=== PATIENT | male | born 1955 | race Caucasian/White ===

== ENCOUNTER → 2018-03-22 | Outpatient (CLI) | payer BC ==
[2018-03-22 08:28] LABS: Basophils # (A) 0.1 k/uL (0-0.2); Basophils % (A) 2 %; Eosinophils # (A) 0.2 k/uL (0-0.7); Eosinophils % (A) 4 %; HCT 49.9 % (39.0-53.0); HGB 16.5 gm/dL (13.0-17.5); Lymphocytes # (A) 1.8 k/uL (1.0-4.8); Lymphocytes % (A) 42 %; MCH 30.3 pg (25.0-35.0); MCHC 33.1 g/dL (31.0-37.0); MCV 91.5 fL (80.0-100.0); Mean Platelet Volume 6.4; Monocytes # (A) 0.2 k/uL (0-1.0); Monocytes % (A) 5 %; Neutrophils # (A) 1.8 k/uL (1.3-7.7); Neutrophils % (A) 43 %; Platelet Count 302 k/uL (150-450); RBC 5.45 m/uL (4.30-5.90); RDW 12.6 % (11.5-15.5); WBC 4.2 k/uL (3.8-10.6)
== END | disposition home or self-care (01) ==
LOC: LABWHC1 08:07
PROVIDERS: ATTEND Family Medicine
DX: E78.5 Hyperlipidemia, unspecified (principal); Z12.5 Encounter for screening for malignant neoplasm of prostate
CPT/HCPCS: 36415; 84153; 85025

== ENCOUNTER → 2019-03-21 | Outpatient (CLI) | payer MEDICARE, BC | END | disposition home or self-care (01) | LOC: LABWHC1 08:10 | PROVIDERS: ATTEND Urology | DX: R97.20 Elevated prostate specific antigen [PSA] (principal) | CPT/HCPCS: 36415; 84153 ==

== ENCOUNTER → 2020-04-10 | Outpatient (CLI) | payer MEDICARE | END | disposition home or self-care (01) | LOC: LABWHC1 10:38 | PROVIDERS: ATTEND Urology | DX: R97.20 Elevated prostate specific antigen [PSA] (principal) | CPT/HCPCS: 36415; 84153 ==

== ENCOUNTER → 2020-11-10 | Outpatient (CLI) | payer MEDICARE | END | disposition home or self-care (01) | LOC: LABWHC1 09:08 | PROVIDERS: ATTEND Urology | DX: R97.20 Elevated prostate specific antigen [PSA] (principal) | CPT/HCPCS: 36415; 84153 ==

== ENCOUNTER → 2021-12-22 | Outpatient (CLI) | payer MEDICARE | END | disposition home or self-care (01) | LOC: LABWHC1 08:21 | PROVIDERS: ATTEND Urology | DX: R97.20 Elevated prostate specific antigen [PSA] (principal) | CPT/HCPCS: 36415; 84153 ==

== ENCOUNTER → 2022-07-06 | Outpatient (CLI) | payer MEDICARE | END | disposition home or self-care (01) | LOC: LABWHC1 09:44 | PROVIDERS: ATTEND Urology | DX: R97.20 Elevated prostate specific antigen [PSA] (principal) | CPT/HCPCS: 36415; 84153 ==

== ENCOUNTER → 2023-02-10 | Outpatient (CLI) | payer MEDICARE ==
--- NOTE | 2023-02-10 13:01 | CA ---
Transthoracic Echo Report Name: Vince Park Age: 67 Gender: M : 1955 Exam Date: 02/10/2023 11:23 Exam Location: [place] Echo Ht (in): 68 Wt (lb): 195 Ordering Physician: Festus Jones MD Attending/Referring Phys: [id number], Robert Tower Loader Operator Mónica Luo RDCS Procedure CPT: Indications: R94.31 ABNORMAL EKG Cardiac Hx: Technical Quality: Good Contrast 1: Total Dose (mL): Contrast 2: Total Dose (mL): MEASUREMENTS (Male / Female) Normal Values 2D ECHO LV Diastolic Diameter PLAX 4.5 cm 4.2 - 5.9 / 3.9 - 5.3 cm LV Systolic Diameter PLAX 2.8 cm IVS Diastolic Thickness 1.1 cm 0.6 - 1.0 / 0.6 - 0.9 cm LVPW Diastolic Thickness 1.0 cm 0.6 - 1.0 / 0.6 - 0.9 cm LV Relative Wall Thickness 0.5 RV Internal Dim ED PLAX 3.5 cm LA Systolic Diameter LX 4.0 cm 3.0 - 4.0 / 2.7 - 3.8 cm LV Diastolic Volume MOD BP 76.8 cm??? 67 - 155 / 56 - 104 cm??? LV Systolic Volume MOD BP 41.3 cm??? 22 - 58 / 19 - 49 cm??? LV Ejection Fraction MOD BP 46.2 % >= 55 % LV Cardiac Index MOD BP 1361.9 cm???/min???m??? LV Diastolic Volume MOD 4C 95.1 cm??? LV Systolic Volume MOD 4C 42.3 cm??? LV Ejection Fraction MOD 4C 55.5 % LV Cardiac Index MOD 4C 2026.3 cm???/min???m??? LV Diastolic Length 4C 8.0 cm LV Systolic Length 4C 6.6 cm LV Diastolic Volume MOD 2C 59.8 cm??? LV Systolic Volume MOD 2C 26.2 cm??? LV Ejection Fraction MOD 2C 56.2 % LV Cardiac Index MOD 2C 1289.2 cm???/min???m??? LV Diastolic Length 2C 8.4 cm LV Systolic Length 2C 5.1 cm LA Volume 48.0 cm??? 18 - 58 / 22 - 52 cm??? M-MODE Aortic Root Diameter MM 3.7 cm MV E Point Septal Separation 0.4 cm AV Cusp Separation MM 2.5 cm DOPPLER AV Peak Velocity 122.2 cm/s AV Peak Gradient 6.0 mmHg MV Area PHT 2.2 cm??? Mitral E Point Velocity 64.0 cm/s Mitral A Point Velocity 83.2 cm/s Mitral E to A Ratio 0.8 MV Deceleration Time 341.3 ms MV E' Velocity 7.4 cm/s Mitral E to MV E' Ratio 8.7 TR Peak Velocity 231.5 cm/s TR Peak Gradient 21.4 mmHg Right Ventricular Systolic Press 25.6 mmHg FINDINGS Left Ventricle Left ventricular ejection fraction is estimated at 55-60 %. Left ventricular cavity size normal. Left ventricular wall thickness normal. Normal left ventricular wall motion. Sygmoid septum Right Ventricle Mild right ventricular dilatation. Right ventricular systolic pressure within normal limits. Right Atrium Normal right atrial size. Left Atrium Normal left atrial size. Mitral Valve Structurally normal mitral valve. No evidence for mitral valve prolapse. No mitral stenosis. Mild mitral regurgitation. Aortic Valve Trileaflet aortic valve. Trace aortic regurgitation. Tricuspid Valve Structurally normal tricuspid valve. Mild tricuspid regurgitation. Pulmonic Valve Structurally normal pulmonic valve. Trace pulmonic regurgitation. Pericardium Normal pericardium. No pericardial effusion. Aorta Normal size aortic root and proximal ascending aorta. CONCLUSIONS 1. Normal left ventricle size and systolic function 2. Mild mitral and tricuspid regurgitation Previewed by: Dr. Cuate Colorado MD (Electronically Signed) Final Date: 10 February 2023 13:00
--- NOTE | 2023-02-10 13:03 | CA ---
Exercise Stress Test Report Name: Vince Park Exam Date: 02/10/2023 11:01 Exam Location: [place] [facility] Ht (in): Wt (lb): BSA: Ordering Phys: Festus Jones MD Referring Phys: Robert, Technologist: Sebastián Molina Age: 67 Gender: M : 1955 Procedure CPT: Indications: R94.31 ABNORMAL EKG ICD-10 Codes: Patient History: Hypertension Medications: Meds past 24 hrs: Pretest Chest Pain: STRESS TEST Matthew Protocol Exercise Duration (min:sec): 09:[address] Depressions (mm): 0 Angina Score: 0 Simon Score: 9 Resting HR (bpm): 70 Peak HR (bpm): 154 Resting BP (mmHg): 146 / 93 Peak BP (mmHg): 222 / 90 MPHR: 151 Target HR: 128 % MPHR: 102 METS: 10.3 Total Dose: Peak Dose: Atropine: Double Product: 64443 BP Response: Stress Termination: Reached target heart rate Stress Symptoms: No chest pain or symptoms Stress Summary: The patient's target heart rate was achieved , The hemodynamic response to exercise was normal ECG ANALYSIS Resting ECG: Sinus rhythm. Normal conduction. No arrhythmias. Normal repolarization. Stress ECG: No ECG evidence of ischemia with exercise. CONCLUSIONS Patient falls into low-risk group (DTS >= +5). This associates the patient with an annual CV mortality <= 0.5%. 1. Good exercise tolerance 2. Normal electrocardiographic response to exercise with no evidence of stress-induced ischemia Dr. Cuate Colorado MD (Electronically Signed) Final Date: 10 February 2023 13:02
== END | disposition home or self-care (01) ==
LOC: RADNMMAIN 10:24
PROVIDERS: ATTEND Family Medicine
DX: I08.1 Rheumatic disorders of both mitral and tricuspid valves (principal); I10 Essential (primary) hypertension; R94.31 Abnormal electrocardiogram [ECG] [EKG]
CPT/HCPCS: 93017; 93306

== ENCOUNTER → 2023-08-29 | Outpatient (CLI) | payer MEDICARE ==
[2023-08-29 15:23] LABS: Basophils # (A) 0.06 X 10*3/uL (0.00-0.10); Basophils % (A) 1.1 %; Eosinophils # (A) 0.12 X 10*3/uL (0.04-0.35); Eosinophils % (A) 2.3 %; HCT 49.3 % (39.6-50.0); Lymphocytes # (A) 1.47 X 10*3/uL (0.90-5.00); Lymphocytes % (A) 27.9 %; MCH 30.6 pg (27.0-32.0); MCHC 34.5 g/dL (32.0-37.0); MCV 88.7 FL (80.0-97.0); Mean Platelet Volume 10.2 FL (9.5-12.2); Monocytes # (A) 0.31 X 10*3/uL (0.20-1.00); Monocytes % (A) 5.9 %; NRBC Per 100 WBC 0 X 10*3/uL (0.00-0.01); Neutrophils # (A) 3.29 X 10*3/uL (1.80-7.70); Neutrophils % (A) 62.6 %; Platelet Count 308 X 10*3/uL (140-440); RBC 5.56 X 10*6/uL (4.40-5.60); RDW 11.9 % (11.5-14.5); WBC 5.26 X 10*3/uL (4.50-10.00)
[2023-08-29 15:50] LABS: Creatine Kinase 126 U/L (35-257)
[2023-08-29 15:51] LABS: ALT 26 U/L (10-49); AST 19 U/L (14-35); BUN/Creat Ratio 18.11 Ratio (12.00-20.00); Blood Urea Nitrogen 16.3 mg/dL (9.0-27.0); C Reactive Protein <0.30 mg/dL (0.00-0.80); Calcium 9.6 mg/dL (8.7-10.3); Carbon Dioxide 24.4 mmol/L (21.6-31.8); Chloride 103 mmol/L (96-109); Glucose 97 mg/dL (70-110); Potassium 4.1 mmol/L (3.5-5.5); Rheumatoid Factor, Qnt <15 IU/mL (0-15); Sodium 141 mmol/L (135-145); T4, Free (Free Thyroxine) 1.46 ng/dL (0.80-1.80); Uric Acid 6.4 mg/dL (3.7-8.7)
[2023-08-29 15:55] LABS: Erythrocyte Sedimentation Rate 3 mm/Hr (0-20)
[2023-08-29 17:36] LABS: Cyclic Citrull Pep IgG Unit <1.5 U/mL (<=3.9); Cyclic Citrullinated Pep IgG Negative
[2023-08-30 08:18] LABS: Angiotensin-1 Converting Enz. 55 U/L (8-52)
[2023-08-30 11:12] LABS: HLA B27 NEGATIVE
== END | disposition home or self-care (01) ==
LOC: LABWHC1 09:47
PROVIDERS: ATTEND Orthopaedic Surgery
DX: M65.331 Trigger finger, right middle finger (principal); M65.341 Trigger finger, right ring finger; M19.041 Primary osteoarthritis, right hand; M18.11 Unilateral primary osteoarthritis of first carpometacarpal joint, right hand
CPT/HCPCS: 36415; 80048; 82164; 82306; 82550; 83520; 84439; 84443; 84450; 84460; 84550; 85025; 85652; 86038; 86140; 86200; 86431; 86812

== ENCOUNTER → 2024-01-03 | Outpatient (CLI) | payer MEDICARE | END | disposition home or self-care (01) | LOC: LABWHC1 08:58 | PROVIDERS: ATTEND Urology | DX: R97.20 Elevated prostate specific antigen [PSA] (principal) | CPT/HCPCS: 36415; 84153 ==